=== PATIENT | female | born 1960 | race Caucasian/White ===

== ENCOUNTER → 2018-07-06 | Outpatient (CLI) | payer OTHER | LOC: ULTRA | DX: K59.00 Constipation, unspecified (principal); R14.0 Abdominal distension (gaseous); R63.4 Abnormal weight loss ==

== ENCOUNTER → 2018-07-27 | Outpatient (CLI) | payer OTHER | LOC: RAD 05:33 | DX: Z12.31 Encounter for screening mammogram for malignant neoplasm of breast (principal) ==

== ENCOUNTER → 2020-02-17 | Outpatient (CLI) | payer OTHER | LOC: CAT 11:22 | PROVIDERS: ATTEND Family Medicine | DX: Z13.6 Encounter for screening for cardiovascular disorders (principal); I25.10 Atherosclerotic heart disease of native coronary artery without angina pectoris; E78.00 Pure hypercholesterolemia, unspecified ==